=== PATIENT | male | born 1990 | race African-American/Black ===

== ENCOUNTER 2016-08-26 14:01 | Emergency (ER) | payer MEDICAID ==
[~2016-08-26] VITALS: Ht 177.8 cm; Wt 85.0 kg
[2016-08-26 19:41] VITALS: BP 127/90
== END 2016-08-26 20:21 | disposition home or self-care (01) ==
LOC: ER 16:38
DX: J30.81 Allergic rhinitis due to animal (cat) (dog) hair and dander (principal); F12.10 Cannabis abuse, uncomplicated
CPT/HCPCS: 99282